=== PATIENT | male | born 1985 | race Caucasian/White ===

== ENCOUNTER → 2021-04-24 | Outpatient (CLI) | payer BC ==
--- NOTE | 2021-04-24 15:29 | Diagnostic Imaging Report ---
INDICATION: History of left renal calculi. COMPARISON: None. FINDINGS: Single supine radiographic view of the abdomen was obtained and demonstrates nondistended loops of small bowel. There is no large collection of free peritoneal air. Mild air and stool are seen scattered throughout the colon. Small 3 to 4 mm calculi are identified projecting over the left psoas muscle at approximately the L2-L3 level. Extraosseous calcifications are also seen projecting over the pelvis, right more than left. There is no prior available for comparison purposes. No unexpected radiopaque foreign bodies are seen.. Bony structures show no gross acute abnormalities. IMPRESSION: 1. Nonobstructed small bowel gas pattern. 2. Small calculi project over the left psoas muscle at L2-L3. Findings could be on the basis of calculi within the left renal pelvis or potentially within the proximal left ureter. Correlation with CT may be of benefit. 2. Probable pelvic venous phleboliths. Distal ureteral or urinary bladder calculi cannot be entirely excluded. Dictated by: Dictated on workstation # [id number]
== END ==
LOC: RAD 12:40
PROVIDERS: ATTEND Urology
DX: N20.1 Calculus of ureter (principal)
CPT/HCPCS: 74018

== ENCOUNTER → 2021-04-25 | Outpatient (CLI) | payer BC | END | disposition home or self-care (01) | LOC: PREOP 06:35 | PROVIDERS: ATTEND Urology | DX: Z01.818 Encounter for other preprocedural examination (principal) ==